=== PATIENT | female | born 1960 | race Caucasian/White ===

== ENCOUNTER 2017-10-07 04:19 | Emergency (ER) | payer OTHER ==
[~2017-10-07] VITALS: Ht 167.6 cm; Wt 81.6 kg
[~2017-10-07 04:19] MED LIST: ALBUTEROL0.09 MG/A1 INH; AMOXICILLIN500 MG PO; LEVOTHYROXIN0.025 M1 PO; PREDNISONE 20MG20 MG PO; TESSALON PERLE100 MG PO
[2017-10-07 04:32] VITALS: BP 133/85
[2017-10-07] MEDS ORDERED: ARMOUR THYROID30 M1 PO (04:33)
--- NOTE | 2017-10-07 04:39 | ED UPPER/LOWER EXTREMITY COMPL ---
History of Present Illness General Chief Complaint: Hand or Wrist Injury Stated Complaint: SWOLLEN LOOKING POINTER FINGER Source: patient Exam Limitations: no limitations Vital Signs & Intake/Output Vital Signs & Intake/Output Vital Signs Date Time Temp Pulse Resp B/P B/P Pulse O2 O2 Flow FiO2 Mean Ox Delivery Rate 10/07 0433 95 Room Air 10/07 0432 97.2 82 18 133/85 95 Room Air Allergies Coded Allergies: NO KNOWN ALLERGIES (02/14/14) Reconcile Medications Cephalexin (Keflex) 500 MG CAPSULE 1 CAP PO 4 TIMES/DAY INFECTION Ibuprofen 800 MG TABLET 1 TAB PO TID PRN pain Levothyroxine Sodium 0.025 MG TAB 1 TAB PO DAILY THYROID HEALTH (Reported) Sulfamethoxazole/Trimethoprim (Bactrim Ds Tablet) 800 MG-160 MG TABLET 1 TAB PO BID INFECION Thyroid,Pork ([place] Thyroid) 30 MG TABLET 1 TAB PO DAILY THYROID (Reported) Triage Note: TRIAGE: PATIENT TO ER FROM HOME REPORTING R 2ND FINGER SWELLING X 3 DAYS, WORSE TONIGHT. 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 yes Onset: Gradual Duration: day(s): Timing: recent history Severity: mild Pain/Injury Location: Right: 1st finger. Method of Injury: unknown Associated Symptoms: swelling, redness HPI: 57 yo woman presents with redness, swelling, and tenderness of right 2nd digit. "I think there was a scratch when I was painting.... now it really hurts." She notes redness and pain in her finger only, not her hand. She does not recall any trauma. She is otherwise well. Past History Travel History Traveled to [place] past 21 day No Medical History Any Pertinent Medical History? see below for history Neurological: NONE EENT: NONE Cardiovascular: NONE Respiratory: NONE Gastrointestinal: NONE Hepatic: NONE Renal: NONE Musculoskeletal: NONE Psychiatric: NONE Endocrine: hypothyroidism Blood Disorders: NONE Cancer(s): NONE MAINTENANCE MACHINE REPAIRER/Reproductive: NONE Tetanus Vaccine: 07/30/15 Surgical History Surgical History: Bert BARKER Psychosocial History What is your primary language Serbian Tobacco Use: Quit >30 days ago Family History Hx Contributory? No Review of Systems Review of Systems Constitutional: Reports: no symptoms. EENTM: Reports: no symptoms. Respiratory: Reports: no symptoms. Cardiovascular: Reports: no symptoms. Gastrointestinal/Abdominal: Reports: no symptoms. Genitourinary: Reports: no symptoms. Musculoskeletal: Reports: no symptoms. Skin: Reports: no symptoms. Neurological/Psychological: Reports: no symptoms. Hematologic/Endocrine: Reports: no symptoms. Immunological: Reports: no symptoms. All Other Systems: Reviewed and Negative Physical Exam Physical Exam General Appearance: well developed/nourished, mild distress Head: atraumatic Eyes: Bilateral: normal appearance. Ears, Nose, Throat: normal pharynx Hand Right: 2nd finger, redness, tenderness, swelling in right 2nd digit between dip and pip joints, not involving the nail. there is a mild abrasion between the DIP and PIP joints. No discharge or lymphangitis streaking. Progress Differential Diagnosis: cellulitis vs other. Plan of Care: bactrim/keflex x 10 days... close follow up advised. Departure Departure Disposition: HOME OR SELF CARE Condition: Stable Clinical Impression Primary Impression: Cellulitis Referrals: Kim GOODWIN,Alberto Hernandez (PCP/Family) Departure Forms: Customer Survey General Discharge Information Prescriptions: Current Visit Scripts Cephalexin (Keflex) 1 CAP PO 4 TIMES/DAY #40 CAP Sulfamethoxazole/Trimethoprim (Bactrim Ds Tablet) 1 TAB PO BID #20 TAB Ibuprofen 1 TAB PO TID PRN pain #30 TAB
[2017-10-07] MEDS ORDERED: IBUPROFEN800 M1 PO (04:41)
[2017-10-07] MEDS ORDERED: KEFLEX500 M1 PO (04:41)
[2017-10-07] MEDS ORDERED: BACTRIM DS TAB1 EACH PO (04:41)
== END 2017-10-07 04:51 ==
LOC: ERH 04:19
DX: L03.011 Cellulitis of right finger (principal)